=== PATIENT | female | born 1945 | race Caucasian/White ===

== ENCOUNTER 2018-08-01 06:23 | Inpatient (IN) ==
[~2018-08-01 06:23] MED LIST: ASPIRIN ONE
[2018-08-01] MEDS ORDERED: G.I. COCKTAIL PO ONE ×2 (06:34→17:57)
--- NOTE | 2018-08-01 06:37 | PROVIDER DOCUMENTATION ---
HPI-Chest Pain - General Chief Complaint: Chest Pain Stated Complaint: SOB Time Seen by Provider: 08/01/18 06:26 Source: patient Allergies/Adverse Reactions: Patient Allergies Allergy/AdvReac Type Severity Reaction Status Date / Time lisinopril Allergy DRY COUGH Verified 08/01/18 06:26 Home Medications: Home Medication List Medication Instructions Recorded Confirmed Last Taken Type ATORVAstatin [Lipitor] 20 mg PO DAILY 07/04/17 08/01/18 07/04/17 10:00 History Aspirin [Aspir-Low] 81 mg PO DAILY 07/04/17 08/01/18 07/04/17 10:00 History Furosemide 20 mg PO DAILY 07/04/17 08/01/18 07/04/17 10:00 History Insulin Aspart [Novolog Flexpen] 18 units SUBQ DAILY 07/04/17 08/01/18 07/04/17 10:00 History Insulin Detemir [Levemir Flextouch] 55 units SUBQ HS 07/04/17 08/01/18 07/03/17 17:00 History Potassium Chloride 10 meq PO DAILY 07/04/17 08/01/18 07/04/17 10:00 History Acetaminophen [Tylenol] 1,000 mg PO Q6H PRN PRN 08/01/18 08/01/18 Unknown Hi story Prednisone 1 mg PO DAILY 08/01/18 08/01/18 Unknown History - History of Present Illness-CP Nature of Presenting Problem: 72 y/o WF c/o epigastric and substernal chest pain since last night. She states that her pain radiates through her back and at times up her neck. Pt also notes SOB but no nausea. Location: reports: substernal, epigastric Chest Pain Radiation: reports: neck, shoulders, back Quality of Pain: reports: aching, burning Severity in ED: mild Onset/Duration: last night Timing: still present Context/Activities at Onset: reports: light activity Modifying Factors: improves with: palpation Associated Symptoms: reports: shortness of breath Nitro Today/Relief: no nitro taken today Aspirin Treatment Today: 81 mg x 2 Prior Chest Pain/Cardiac Workup: reports: no prior chest pain, no prior cardiac workup Similar Symptoms Previously?: No Recently Seen Here or By Another Healthcare Provider: No Review of Systems - Adult - REVIEW OF SYSTEMS - ADULT Constitutional: reports: no symptoms reported, see HPI Eyes: reports: no symptoms reported, see HPI Ears, Nose, Mouth & Throat: reports: no symptoms reported, see HPI Cardiovascular: reports: see HPI, chest pain Respiratory: reports: see HPI, shortness of breath Gastrointestinal: reports: no symptoms reported, see HPI Genitourinary: reports: no symptoms reported, see HPI Musculoskeletal: reports: no symptoms reported, see HPI Integumentary: reports: no symptoms reported, see HPI Neurological: reports: no symptoms reported, see HPI Psychiatric: reports: no symptoms reported, see HPI Endocrine: reports: no symptoms reported, see HPI Hematologic/Lymphatic: reports: no symptoms reported, see HPI Allergic/Immunologic: reports: no symptoms reported, see HPI All Other Systems: Reviewed and Negative Past History - Adult - PAST MEDICAL HISTORY-ADULT Review of Records: reports: Nursing Assessment Review, Medications Reviewed, Social history reviewed & non-contributory. Major Childhood Illnesses: reports: denies history Cardiovascular: reports: HTN, hyperlipidemia Respiratory: reports: denies history Gastrointestinal: reports: GERD Obstetrical/Gynecological: reports: denies history Genitourinary: reports: denies history Musculoskeletal: reports: denies history Neurological: reports: denies history Endocrine/Immune: reports: Diabetes Other Conditions: reports: denies history - PRIOR SURGERIES/PROCEDURES Surgical/Procedure History: reports: appendectomy, hysterectomy, , hernia repair - IMMUNIZATION STATUS Childhood Immunizations: See Nurse Assessment Flu Vaccine: See Nurse Assessment - FAMILY HISTORY Family History: reviewed, not pertinent Physical Exam-General - PHYSICAL EXAM-ADULT Initial Vital Signs Reviewed: Yes - CONSTITUTIONAL General Appearance: appears well, alert, no apparent distress - EYES Eyes: PERRL/EOMI - HEAD, EARS, NOSE, MOUTH & THROAT HENMT: normocephalic/atraumatic, moist mucous membranes - NECK Neck: non-tender, full range of motion, supple, normal inspection - RESPIRATORY Respiratory: lungs clear, normal breath sounds, no pleuratic chest pain, no respiratory distress, no accessory muscle use, other (tenderness with chest wall palpation (sternal)) - CARDIOVASCULAR Cardiovascular: normal peripheral pulses, regular rate, rhythm, no edema, no gallop, no JVD, no murmur - GASTROINTESTINAL (ABDOMEN) Abdominal Exam: normal bowel sounds, non tender, soft, no organomegaly, no pulsatile mass - LYMPHATIC Lymphatic: no adenopathy - MUSCULOSKELETAL Back Exam: normal inspection, no CVA tenderness, no vertebral tenderness Extremity: normal range of motion, non-tender, normal gait, normal inspection, no pedal edema, no calf tenderness, normal capillary refill - SKIN Integumentary: normal color, normal turgor - NEUROLOGIC Neurologic: gluer and wedger II-XII nml as tested, grossly normal, no motor/sensory deficits - PSYCHIATRIC Psych/Mental Status: normal mood/affect, normal thought content, normal thought process, oriented x 3 - HEART Score HEART Score: History: Slightly Suspicious HEART Score: ECG: Non-Specific Repolarization Disturbance/LBBB/PM HEART Score: Age: > or = 65 Years HEART Score: Risk Factors for Atherosclerotic Disease: 1 or 2 Risk Factors HEART Score: Troponin: < or = Normal Limit Total HEART Score:: 4 Progress - PLAN OF CARE/RESULTS Result Diagrams: 08/02/18 06:12 08/02/18 06:12 - EKG 1 Time of EKG reading by physician:: 06:25 EKG Read and Signed by:: Marcelo Cobos EKG Interpretation (*Must complete 3 of following elements*): Abnormal Rate: 84 [place]: normal QRS: normal [place] Interval: normal ST Wave: depressed Prior EKG Comparison: no prior EKG - CHANGE OF SHIFT REPORT (ED Provider) 1 Report Given and Care Transferred to:: Dr Jc Time of Transfer: 07:00 Items Pending: Labs, XRAY Results Departure - Departure Date of Disposition Decision: 08/01/18 Time of Disposition Decision: 09:34 DIAGNOSIS: Chest pain Disposition: ADMITTED INPATIENT 09 Certified Medical Emergency: Emergent Condition: Stable - Critical Care Note This patient required my direct & personal management of CC.: No Attestation - Physician/ GISSELLE Attestation Patient care was provided by Advanced Practice Provider:: No The physician spent face to face time with patient:: Yes Advanced Practice Provider documentation review:: Supervising physician onsite and consulted in the evaluation and care of this patient. The physician did have a face to face encounter with the patient.
[2018-08-01 07:02] LABS: BASO# 0.04 X1000 (0.0-0.2); BASO% 0.3 % (0.0-0.8); EOS# 0.25 X1000 (0.0-0.7); EOS% 1.6 % (0.0-10.0); HEMATOCRIT 43.9 % (37.0-47.0); HEMOGLOBIN 13.9 g/dL (12.0-16.0); IMM GRAN# 0.04 X1000 (0.0-0.04); IMM GRAN% 0.3 % (0.0-0.5); LYMPH# 2.04 X1000 (1.2-3.4); LYMPH% 13.1 % (20.5-51.1); MCH 27.7 PG (27-31); MCHC 31.7 g/dL (33-37); MCV 87.5 FL (81-99); MONO# 1.77 X1000 (0.11-0.59); MONO% 11.4 % (1.7-9.3); MPV 11.2 FL (7.4-10.4); NEUT# 11.45 X1000 (1.4-6.5); NEUT% 73.3 % (42.2-75.2); PLT 244 X1000 (130-400); RBC 5.02 XMIL (4.2-5.4); RDW 14.5 % (11.5-14.5); WBC 15.59 X1000 (4.8-10.8)
[2018-08-01 07:20] LABS: INR 0.93; PROTIME 12.9 Seconds (11.0-16.0)
[2018-08-01 07:21] LABS: PTT 27.2 Seconds (22.3-41.8)
--- NOTE | 2018-08-01 07:28 | Diag Imaging Result Doc PS360 ---
EXAM: CHEST-2 VIEWS HISTORY: cp TECHNIQUE: Chest two views COMPARISON: 07/04/2017 FINDINGS: The lungs are well expanded. The heart is not enlarged. The vessels are not distended. There are no infiltrates. No pleural effusions. IMPRESSION: No acute abnormality. Electronically signed by Matthew Mcguire 08/01/2018 7:26 AM
[2018-08-01 07:30] LABS: AGAP 13; ALBUMIN 4.2 g/dL (3.5-5.0); ALKALINE PHOSPHATASE 104 U/L (32-104); BUN 16 mg/dL (8-22); CALCIUM 9.2 mg/dL (8.8-10.2); CHLORIDE 102 mmol/L (98-107); CK PROFILE 55 U/L (24-173); COSMO 288; CREATININE 0.8 mg/dL (0.5-0.9); ESTIMATED GFR > 60; GLUCOSE 107 mg/dL (70-104); GOT 12 U/L (10-30); GPT 9 U/L (10-36); POTASSIUM 3.9 mmol/L (3.5-5.1); SODIUM 144 mmol/L (136-145); TCO2 29 mmol/L (25-35); TOTAL PROTEIN 7.1 g/dL (6.3-8.3)
[2018-08-01] MEDS ORDERED: ZOFRAN IV ONE (07:48)
[2018-08-01] MEDS ORDERED: MORPHINE IV ONE (07:48)
[2018-08-01 10:12] LABS: AMYLASE 61 U/L (20-200); LIPASE 25 U/L (13-60)
[2018-08-01] MEDS ORDERED: DILAUDID IV ONE (10:36)
[2018-08-01] MEDS: HUMALOG (PARKWAY) SUBQ SCH ×3 (12:10→21:49)
[2018-08-01] MEDS: PROTONIX IV SCH ×2 (12:20→21:49)
[2018-08-01] MEDS: SODIUM CHLORIDE 0.9% INJ SCH (12:20)
[2018-08-01] MEDS: CARAFATE PO SCH ×3 (14:49→21:30)
--- NOTE | 2018-08-01 15:10 | EKG Report ---
Test Performed on : 08/01/2018 06:25:51 AM Test Reason : cp Blood Pressure : / mmHG Vent. Rate : 084 BPM Atrial Rate : 084 BPM P-R Int : 114 ms QRS Dur : 076 ms QT Int : 354 ms P-R-T Axes : 003 -05 025 degrees QTc Int : 418 ms Normal sinus rhythm. Minimal voltage criteria for LVH, may be normal variant Junctional ST depression, probably normal Borderline ECG When compared with ECG of 04-JUL-2017 14:26, No significant change was found Unconfirmed Result
[2018-08-01 17:04] LABS: BILIRUBIN URINE NEGATIVE (NEGATIVE); BLOOD URINE 2+ (NEGATIVE); CLARITY VERY CLOUDY (CLEAR); COLOR YELLOW; KETONE URINE TRACE mg/dL (NEGATIVE); LEUKOCYTES URINE TRACE (NEGATIVE); NITRITE URINE NEGATIVE (NEGATIVE); PROTEIN URINE TRACE mg/dL (NEGATIVE); UROBILINOGEN URINE NORMAL
[2018-08-01 17:05] LABS: URINE SOURCE CLEAN CATCH
[2018-08-01 17:07] LABS: URINE BACTERIA 3+ /HFP; URINE CAST NONE SEEN /LPF; URINE CRYSTAL NONE SEEN /HPF; URINE EPITHELIAL CELLS <10 /HPF (<10); URINE RBC <10 /HPF (<10); URINE YEAST NONE SEEN /HPF
--- NOTE | 2018-08-01 18:19 | EKG Report ---
Test Performed on : 08/01/2018 6:07:29 PM Test Reason : CHEST PAIN Blood Pressure : / mmHG Vent. Rate : 088 BPM Atrial Rate : 088 BPM P-R Int : 148 ms QRS Dur : 086 ms QT Int : 340 ms P-R-T Axes : 046 -02 027 degrees QTc Int : 411 ms Normal sinus rhythm. Normal ECG When compared with ECG of 01-AUG-2018 06:25, (Unconfirmed) No significant change was found Unconfirmed Result
--- NOTE | 2018-08-01 18:26 | HISTORY AND PHYSICAL ---
CHIEF COMPLAINT: Epigastric pain, chest pain. HISTORY OF PRESENT ILLNESS: This is a 72-year-old female with a history of diabetes mellitus, gastroesophageal reflux disease, hypertension, and arthritis. She presents to the emergency room complaining of epigastric pain that radiates straight through to her back up into her bilateral shoulders and neck, accompanied by shortness of breath. She states this was of sudden onset last night. It waxed and waned through the night. Just prior to coming to the emergency room, it became persistent, intensity increased, and therefore she presented for evaluation. She denies any dizziness, syncope, any prior episodes. When asked to point to the area of pain, she states this starts as epigastric and goes around each side along her ribcage and straight through to her back. Chest wall is tender to palpation. PAST MEDICAL HISTORY: 1. Gastroesophageal reflux disease. 2. Hypertension. 3. Diabetes mellitus. 4. Hyperlipidemia. 5. Rheumatoid arthritis. 6. Osteoarthritis. 7. Gout. PAST SURGICAL HISTORY: 1. Appendectomy. 2. . 3. Hysterectomy. 4. Hernia repair. 5. Tubal ligation. SOCIAL HISTORY: She denies alcohol, tobacco, or illicit drug use. ALLERGIES: Lisinopril, which causes a cough. HOME MEDICATIONS: A list will be obtained by the nursing staff and once reviewed, will be restarted as appropriate. REVIEW OF SYSTEMS: Discussed with the patient with pertinent positives as stated in the HPI. She denied any syncope, dizziness, any palpitations, a productive cough, any fever or chills, nausea, vomiting, diarrhea, constipation, black or bloody vomitus or stools, any hematuria, dysuria, frequency, or urgency. PHYSICAL EXAMINATION: GENERAL: This is a 72-year-old female who is lying on the stretcher in the emergency room in no distress. VITAL SIGNS: Blood pressure is 122/77 with a heart rate of 80, respirations are 18, temperature is 98.3, with O2 saturations of 96% to 97% on 2 L nasal cannula. EYES: Pupils are equal, round, and react to light. EOMs are intact. Sclerae are anicteric. HEAD: Normocephalic, atraumatic. ENT: Mucous membranes are moist. NECK: Supple. Trachea midline. She has no JVD. CARDIOVASCULAR: Regular rate and rhythm. S1 and S2 are appreciated. Calves are nontender to palpation. She has no lower extremity edema with peripheral pulses palpable x4 extremities. PULMONARY: Breath sounds are clear with no increased work of breathing noted. Chest rises and falls symmetrically with respiration. Chest wall is tender to palpation, midsternal. GASTROINTESTINAL: Abdomen is soft and not distended. She is tender in the epigastric region as well as right and left upper quadrants, just at the border of the ribcage. Bowel sounds are present in all 4 quadrants. NEUROLOGIC: She is alert and oriented x3. SKIN: Warm and dry. LABS: WBC is 15 with hemoglobin 13.9, hematocrit 43.9, and platelets of 244,000. Sodium 144, potassium 3.9, BUN 16, creatinine 0.8 with a glucose of 107. Troponins are negative on multiple occasions. Urinalysis reveals 10 to 20 microscopic white blood cells with 3+ bacteria, less than 10 epithelial cells. Chest x-ray reveals no acute abnormality. Lungs are well expanded. Heart is not enlarged. Vessels are not distended. There are no infiltrates and no pleural effusion. ASSESSMENT AND PLAN: 1. Epigastric pain. 2. Chest pain. 3. Leukocytosis. 4. Diabetes mellitus type 2. 5. Gastroesophageal reflux disease. 6. Hypertension. 7. Deep venous thrombosis prophylaxis and gastrointestinal prophylaxis. PLAN: 1. The patient will be admitted to the medical-surgical floor at [place]. She will be placed on telemetry for close monitoring. 2. She will be placed on a clear liquid diet. 3. We will continue to trend troponins and cardiac profile. 4. Urine culture will be ordered. 5. We will check a CBC and CMP in the morning. 6. We will identify her home medications and continue as appropriate. 7. We will obtain a CT scan of her abdomen and pelvis. 8. We will hold her oral antidiabetics. She will be placed on patterned blood glucose with sliding scale insulin. 9. We will start Carafate 1 g before meals and at bedtime. 10. We will get a CT of the thorax. 11. IV Protonix. 12. Further treatments pending hospital course. Dictated by KAILASH Jimenez for Josh Cabello MD This chart was documented by, KAILASH Jimenez and accurately reflects the services performed, treatment plan and medical decisions as attested by the providers signature Josh Cabello MD. cc: KAILASH Jimenez MD
--- NOTE | 2018-08-01 20:18 | Diag Imaging Result Doc PS360 ---
EXAM: CT THORAX/ABD/PELVIS W/CON HISTORY: epigastric pain TECHNIQUE: 1. CT chest with contrast 2. CT abdomen and pelvis with contrast COMPARISON: Chest compared to 07/04/2017. Abdomen and pelvis compared to 02/02/2018 FINDINGS: Chest: No cardiomegaly. No thoracic aortic aneurysm or dissection. No enlarged lymph nodes. No consolidation. There is basilar atelectasis. Mild posterior and inferior bronchiectasis. No consolidation. Abdomen and pelvis: There is fatty infiltration of the liver. No calcified gallstones or adjacent inflammation. Normal spleen, pancreas, and adrenal glands. There is a 5 mm right lower pole renal stone. The scarring to each kidney. No hydronephrosis. Normal aorta. There is an anterior abdominal wall hernia containing a portion of the transverse colon. This hernia is just above and to the right of the umbilicus. No bowel obstruction. No wall thickening of the colon extending into the hernia. This is similar to the prior exam. There is an additional fat filled hernia just beneath the umbilicus. The uterus has been removed. Urinary bladder is distended and is normal. No pelvic mass. Oral contrast has passed through the small bowel and entered the proximal colon. IMPRESSION: Chest: Basilar atelectasis with a small amount of bronchiectasis Abdomen and pelvis: 1. Fatty infiltration of the liver 2. Nonobstructing right renal stone 3. Anterior abdominal wall hernias containing a portion of the transverse colon. Findings are similar to the prior study. 4. Hysterectomy 5. Constipation This exam was performed using automated exposure control, adjustment of mA or kV according to patient size, and/or use of iterative reconstruction technique. Electronically signed by Matthew Mcguire 08/01/2018 8:16 PM
[2018-08-01] MEDS: NORCO-5 PO PRN (21:30)
[2018-08-01] MEDS: LIPITOR PO SCH (21:30)
--- NOTE | 2018-08-01 21:49 | HISTORY AND PHYSICAL ---
ADDENDUM: Patient presented to the hospital with chest pain. No real radiation although does note she is having pain in both shoulders, pain typically in the center of her chest. Blood pressure is elevated. Does have a history of diabetes and rheumatoid arthritis . Will admit her to the hospital, rule out AL, restart her home medications and follow. cc: Josh Cabello MD
[2018-08-02] MEDS: HUMALOG (PARKWAY) SUBQ SCH ×8 (06:34→23:00)
[2018-08-02] MEDS: CARAFATE PO SCH ×4 (06:34→20:37)
[2018-08-02 06:54] LABS: HEMATOCRIT 40.6 % (37.0-47.0); HEMOGLOBIN 12.5 g/dL (12.0-16.0); MCH 27.4 PG (27-31); MCHC 30.8 g/dL (33-37); MPV 11.1 FL (7.4-10.4); RBC 4.56 XMIL (4.2-5.4); RDW 14.7 % (11.5-14.5); WBC 12.97 X1000 (4.8-10.8)
[2018-08-02 07:14] LABS: AGAP 11; ALBUMIN 2.9 g/dL (3.5-5.0); ALKALINE PHOSPHATASE 85 U/L (32-104); BUN 12 mg/dL (8-22); CALCIUM 8.7 mg/dL (8.8-10.2); CHLORIDE 102 mmol/L (98-107); COSMO 283; CREATININE 0.7 mg/dL (0.5-0.9); ESTIMATED GFR > 60; GLUCOSE 199 mg/dL (70-104); GOT 9 U/L (10-30); GPT < 5 U/L (10-36); POTASSIUM 4.2 mmol/L (3.5-5.1); SODIUM 139 mmol/L (136-145); TCO2 26 mmol/L (25-35); TOTAL PROTEIN 6.6 g/dL (6.3-8.3)
[2018-08-02] MEDS: PROTONIX IV SCH ×2 (09:12→20:37)
[2018-08-02] MEDS: ASPIRIN EC PO SCH (09:12)
[2018-08-02] MEDS: SODIUM CHLORIDE 0.9% INJ SCH (09:12)
[2018-08-02] MEDS: LASIX PO SCH (09:13)
[2018-08-02] MEDS: PREDNISONE PO SCH (09:13)
--- NOTE | 2018-08-02 11:26 | EKG Report ---
Test Performed on : 08/02/2018 10:47:08 AM Test Reason : irr HR Blood Pressure : / mmHG Vent. Rate : 084 BPM Atrial Rate : 084 BPM P-R Int : 150 ms QRS Dur : 088 ms QT Int : 356 ms P-R-T Axes : 033 -04 039 degrees QTc Int : 420 ms Normal sinus rhythm. Normal ECG When compared with ECG of 01-AUG-2018 18:07, (Unconfirmed) No significant change was found Unconfirmed Result
--- NOTE | 2018-08-02 12:19 | EKG Report ---
Test Performed on : 08/02/2018 12:07:28 PM Test Reason : increased heart rate Blood Pressure : / mmHG Vent. Rate : 129 BPM Atrial Rate : 127 BPM P-R Int : 000 ms QRS Dur : 090 ms QT Int : 310 ms P-R-T Axes : 000 -12 070 degrees QTc Int : 454 ms Atrial fibrillation. with rapid ventricular response. Minimal voltage criteria for LVH, may be normal variant Abnormal ECG When compared with ECG of 02-AUG-2018 10:47, (Unconfirmed) Atrial fibrillation. has replaced Sinus rhythm. Vent. rate has increased BY 45 BPM Unconfirmed Result
[2018-08-02] MEDS ORDERED: CARDIZEM IV ONE (16:33)
[2018-08-02] MEDS ORDERED: CARDIZEM 125/NS 125 MG/125 ML IVPB IV SCH (17:00)
--- NOTE | 2018-08-02 17:47 | EKG Report ---
Test Performed on : 08/02/2018 4:58:53 PM Test Reason : RVR Blood Pressure : / mmHG Vent. Rate : 133 BPM Atrial Rate : 100 BPM P-R Int : 000 ms QRS Dur : 084 ms QT Int : 302 ms P-R-T Axes : 000 007 060 degrees QTc Int : 449 ms Undetermined rhythm Otherwise normal ECG When compared with ECG of 02-AUG-2018 12:07, (Unconfirmed) Current undetermined rhythm precludes rhythm comparison, needs review Unconfirmed Result
--- NOTE | 2018-08-02 17:47 | EKG Report ---
Test Performed on : 08/02/2018 5:10:31 PM Test Reason : RVR Blood Pressure : / mmHG Vent. Rate : 093 BPM Atrial Rate : 093 BPM P-R Int : 140 ms QRS Dur : 084 ms QT Int : 338 ms P-R-T Axes : 047 -04 050 degrees QTc Int : 420 ms Normal sinus rhythm. Normal ECG When compared with ECG of 02-AUG-2018 16:58, (Unconfirmed) Previous ECG has undetermined rhythm, needs review Unconfirmed Result
[2018-08-02] MEDS: LOVENOX SUBQ SCH (18:42)
[2018-08-02] MEDS: LIPITOR PO SCH (20:37)
--- NOTE | 2018-08-02 23:33 | PROGRESS NOTE ---
DATE: 08/02/2018 SUBJECTIVE: This morning patient actually notes that she feels fine. States she is feeling better, and is asking to go home. Prior to discharge, the patient was noted on telemetry to go into a rapid rate and felt to be AFib and, therefore, was transferred to the ICU. OBJECTIVE: Vital Signs: Temperature 98, pulse 87, respiratory 18, BP 144/59. General: Patient is awake, alert. She is very pleasant to talk with. HEENT: Normocephalic. Neck: Supple. CV: Currently rate controlled. Abdomen: Soft, nondistended. Extremities: Moves all extremities. Neurologic: No changes. ASSESSMENT: 1. Atrial fibrillation, currently rate controlled. 2. Epigastric pain. 3. Chest pain. 4. Diabetes. 5. Chronic reflux. 6. Hypertension. PLAN: Will transfer patient to the ICU, place her on Cardizem. We will follow her rate. Further orders as needed. We will rule out OH. Place her on Lovenox. cc: Josh Cabello MD MTDD
[2018-08-03] MEDS: LOVENOX SUBQ SCH (05:45)
[2018-08-03] MEDS: CARAFATE PO SCH ×4 (06:39→20:09)
[2018-08-03] MEDS: HUMALOG (PARKWAY) SUBQ SCH ×5 (06:39→20:09)
--- NOTE | 2018-08-03 09:13 | EKG Report ---
Test Performed on : 08/03/2018 07:56:48 AM Test Reason : abnl ekg Blood Pressure : / mmHG Vent. Rate : 084 BPM Atrial Rate : 084 BPM P-R Int : 150 ms QRS Dur : 090 ms QT Int : 372 ms P-R-T Axes : 033 009 039 degrees QTc Int : 439 ms Normal sinus rhythm. Nonspecific ST abnormality Abnormal ECG When compared with ECG of 02-AUG-2018 17:10, (Unconfirmed) No significant change was found Unconfirmed Result
[2018-08-03] MEDS: LASIX PO SCH (09:30)
[2018-08-03] MEDS: CARDIZEM PO SCH ×2 (09:30→20:09)
[2018-08-03] MEDS: ASPIRIN EC PO SCH (09:30)
[2018-08-03] MEDS: PROTONIX IV SCH ×2 (09:31→20:32)
[2018-08-03] MEDS: SODIUM CHLORIDE 0.9% INJ SCH ×2 (09:31→20:09)
[2018-08-03] MEDS: PREDNISONE PO SCH (11:39)
[2018-08-03] MEDS: LIPITOR PO SCH (20:09)
--- NOTE | 2018-08-03 23:40 | PROGRESS NOTE ---
DATE: 08/02/2018 SUBJECTIVE: Patient without any new complaints this am. Still very fatigued and tired. PHYSICAL EXAMINATION: Vital Signs: Temperature 99.8 degrees, pulse 72, respiratory 18, BP 115/57. General: Patient is in no current respiratory distress. She is lying in bed. She is calm, but confused. Does not answer questions. HEENT: Normocephalic. Neck: Supple. Cardiovascular: Regular rate. No appreciable murmurs. Chest: Clear. No crackles. Abdomen: Soft, nondistended. Extremities: Moves all extremities. ASSESSMENT: 1. Gram-negative jose urinary tract infection. We will continue antibiotics. 2. Abnormal EKG. We will ask Cardiology for opinion. 3. Leukocytosis. 4. Diabetes. 5. Reflux. 6. Hypertension. PLAN: Continue patient in the ICU for now. Continue antibiotics, supportive care, oxygen and we will follow. cc: Josh Cabello MD MTDD
[2018-08-04] MEDS ORDERED: CARDIZEM IV ONE (00:15)
[2018-08-04] MEDS ORDERED: CARDIZEM 100 MG/NS 100 MG/100 ML IVPB IV SCH (00:30)
[2018-08-04] MEDS: NORCO-5 PO PRN ×2 (00:31→20:06)
[2018-08-04] MEDS: HUMALOG (PARKWAY) SUBQ SCH ×5 (06:40→20:19)
--- NOTE | 2018-08-04 08:47 | ECHO REPORT ---
ORDER DATE: 08/03/2018 ECHOCARDIOGRAPHIC MEASUREMENTS: 1. Septal thickness 0.9. 2. Left ventricular internal diameter in diastole 4.6. 3. Left ventricular internal diameter in systole 2.9. 4. Left atrium 3.6, 5. Aortic root 3.0. SUMMARY: 1. Technically difficult study due to limited acoustic window quality. Intravenous echo contrast agent was utilized to enhance endocardial definition. 2. Aortic valve is trileaflet and opens normally on 2-dimensional images. Peak gradient across the aortic valve is less than 10 mmHg. There is mild mitral annular calcification. Trace mitral regurgitation is demonstrated. Tricuspid and pulmonic valves are without evidence of structural abnormality with trace tricuspid regurgitation and mild pulmonic insufficiency. The estimated systolic PA pressure by Doppler is 25 to 30 mmHg. Aortic root is normal in size. 3. Normal left ventricular dimensions demonstrated. Estimated left ventricular ejection fraction appears to be at least 60%. No regional wall motion abnormalities are evident. Left atrium, right atrium, right ventricle are normal in size with grossly preserved right ventricular systolic function. 4. No pericardial effusion. 5. Appearance of inferior vena cava suggests normal central venous pressure. cc: MD Brittany Virgen CRNP
[2018-08-04] MEDS: ASPIRIN EC PO SCH (09:43)
[2018-08-04] MEDS: CARAFATE PO SCH ×4 (09:43→20:05)
[2018-08-04] MEDS: CARDIZEM PO SCH ×2 (09:43→20:05)
[2018-08-04] MEDS: PROTONIX IV SCH ×2 (09:44→22:03)
[2018-08-04] MEDS: LASIX PO SCH (09:44)
[2018-08-04] MEDS: LOVENOX SUBQ SCH (09:44)
[2018-08-04] MEDS: PREDNISONE PO SCH (11:18)
[2018-08-04] MEDS: LIPITOR PO SCH (20:05)
[2018-08-04] MEDS: LEVEMIR INSULIN *HA SUBQ SCH (20:06)
--- NOTE | 2018-08-05 01:51 | PROGRESS NOTE ---
DATE: 08/04/2018 SUBJECTIVE: Patient last night had an eventful night. She went back into atrial fibrillation with rapid rate. Was given 1 dose of Cardizem 5 mg IV and converted back to sinus and has been there since. PHYSICAL EXAMINATION: Vital Signs: Temperature 98 degrees, pulse 76 to 124, respiratory 18, BP 106/93. General: Patient is very pleasant to talk with. She is in no current respiratory distress. States she gets tired and weak at times. Notes that she does not feel her heart racing all the times that she is tired and weak. Chest: Clear. Neck: Supple. Extremities: Moves all extremities. No edema. ASSESSMENT: 1. Atrial fibrillation with rapid ventricular response, currently converted back to sinus. 2. Syncopal episodes at home which very well were likely due to intermittent atrial fibrillation. 3. Leukocytosis. 4. Escherichia coli extended spectrum beta-lactamase negative urinary tract infection, currently on antibiotics. 5. Type 2 diabetes. 6. Hypertension. PLAN: We will continue patient in the hospital. We will stay in the ICU today as we have still had episodes of RVR overnight. If this remains stable, then we can transition to the floor tomorrow. We will ask Cardiology to see and evaluate as I certainly expect that some of her weak, and dizzy and lightheaded spells at home may have been intermittent atrial fibrillation. cc: Josh Cabello MD
[2018-08-05] MEDS ORDERED: CARDIZEM 125/NS 125 MG/125 ML IVPB IV PRN (06:00)
[2018-08-05 07:19] LABS: BASO# 0.06 X1000 (0.0-0.2); BASO% 0.4 % (0.0-0.8); EOS# 0.66 X1000 (0.0-0.7); EOS% 4.7 % (0.0-10.0); HEMATOCRIT 40.3 % (37.0-47.0); HEMOGLOBIN 12.5 g/dL (12.0-16.0); IMM GRAN# 0.07 X1000 (0.0-0.04); IMM GRAN% 0.5 % (0.0-0.5); LYMPH# 2.45 X1000 (1.2-3.4); LYMPH% 17.5 % (20.5-51.1); MCH 27.1 PG (27-31); MCV 87.2 FL (81-99); MONO# 1.58 X1000 (0.11-0.59); MONO% 11.3 % (1.7-9.3); MPV 11.6 FL (7.4-10.4); NEUT# 9.18 X1000 (1.4-6.5); NEUT% 65.6 % (42.2-75.2); PLT 269 X1000 (130-400); RBC 4.62 XMIL (4.2-5.4); RDW 13.8 % (11.5-14.5)
[2018-08-05] MEDS: HUMALOG (PARKWAY) SUBQ SCH ×5 (07:22→20:30)
[2018-08-05] MEDS: CARAFATE PO SCH ×4 (07:23→20:25)
[2018-08-05 07:31] LABS: AGAP 13; BUN 16 mg/dL (8-22); CALCIUM 8.7 mg/dL (8.8-10.2); CHLORIDE 102 mmol/L (98-107); COSMO 290; CREATININE 0.9 mg/dL (0.5-0.9); ESTIMATED GFR > 60; GLUCOSE 164 mg/dL (70-104); POTASSIUM 3.6 mmol/L (3.5-5.1); SODIUM 143 mmol/L (136-145); TCO2 28 mmol/L (25-35)
[2018-08-05] MEDS: ASPIRIN EC PO SCH (09:09)
[2018-08-05] MEDS: SODIUM CHLORIDE 0.9% INJ SCH (09:09)
[2018-08-05] MEDS: LASIX PO SCH (09:09)
[2018-08-05] MEDS: LOVENOX SUBQ SCH (09:09)
[2018-08-05] MEDS: PROTONIX IV SCH ×2 (09:09→21:14)
[2018-08-05] MEDS: CARDIZEM PO SCH ×2 (09:09→20:25)
[2018-08-05] MEDS: PREDNISONE PO SCH (09:09)
[2018-08-05] MEDS: ROCEPHIN 1 GM in NS 50 ML IV SCH (09:20)
[2018-08-05] MEDS ORDERED: INSULIN PEN NEEDLES ONE (20:25)
[2018-08-05] MEDS: LIPITOR PO SCH (20:25)
[2018-08-05] MEDS: LEVEMIR INSULIN *HA SUBQ SCH (20:33)
--- NOTE | 2018-08-06 00:39 | PROGRESS NOTE ---
DATE: 08/05/2018 SUBJECTIVE: Patient notes that she feels a lot better but still very weak and fatigued. Denies any chest pain. She does note that she has palpitations occasionally when her heart rate goes up, but not all the time. PHYSICAL EXAMINATION: HEENT: Normocephalic. Neck: Supple. Cardiovascular: Regular rate. Chest: Clear, nonlabored. Abdomen: Soft, obese, nondistended. Extremities: Moves all extremities. No edema. ASSESSMENT: 1. Atrial fibrillation with rapid ventricular response, currently back to rate controlled. 2. Extended spectrum beta-lactamase negative Escherichia coli urinary tract infection. 3. Leukocytosis. 4. Diabetes. 5. Generalized weakness. PLAN: We will continue patient in the hospital. Transfer to the floor. Continue antibiotics. Get Physical Therapy involved. Further orders as needed. cc: Josh Cabello MD
[2018-08-06] MEDS: NORCO-5 PO PRN (05:31)
[2018-08-06 06:18] LABS: BASO# 0.04 X1000 (0.0-0.2); BASO% 0.3 % (0.0-0.8); EOS# 0.67 X1000 (0.0-0.7); EOS% 4.6 % (0.0-10.0); HEMOGLOBIN 12.5 g/dL (12.0-16.0); IMM GRAN# 0.05 X1000 (0.0-0.04); IMM GRAN% 0.3 % (0.0-0.5); LYMPH# 2.62 X1000 (1.2-3.4); LYMPH% 18.2 % (20.5-51.1); MCH 26.9 PG (27-31); MCHC 31.3 g/dL (33-37); MCV 86.2 FL (81-99); MONO# 1.54 X1000 (0.11-0.59); MONO% 10.7 % (1.7-9.3); MPV 11.5 FL (7.4-10.4); NEUT# 9.51 X1000 (1.4-6.5); NEUT% 65.9 % (42.2-75.2); PLT 264 X1000 (130-400); RBC 4.64 XMIL (4.2-5.4); RDW 13.7 % (11.5-14.5); WBC 14.43 X1000 (4.8-10.8)
[2018-08-06] MEDS: HUMALOG (PARKWAY) SUBQ SCH ×5 (06:22→20:24)
[2018-08-06] MEDS: CARAFATE PO SCH ×4 (10:15→20:23)
[2018-08-06] MEDS: ROCEPHIN 1 GM in NS 50 ML IV SCH (10:15)
[2018-08-06] MEDS: PROTONIX PO SCH ×2 (10:15→20:23)
[2018-08-06] MEDS: ASPIRIN EC PO SCH (10:15)
[2018-08-06] MEDS: LOVENOX SUBQ SCH (10:15)
[2018-08-06] MEDS: LASIX PO SCH (10:15)
[2018-08-06] MEDS: PREDNISONE PO SCH (10:18)
[2018-08-06] MEDS: CARDIZEM PO SCH ×2 (10:18→20:23)
--- NOTE | 2018-08-06 18:09 | PROGRESS NOTE ---
DATE: 08/06/2018 SUBJECTIVE: The patient notes that she is feeling a lot better. She is still tired and fatigued has not really been out of bed since moving out to the floor from the ICU. Denies any chest pain, palpitations. States that she is eager to go home. PHYSICAL EXAM: Temperature 98.2, pulse 67, respiratory 18, BP 115/48, saturation 93% on room air.General: Patient is awake, alert, very pleasant talk with, in no current respiratory distress. HEENT: Normocephalic. Neck: Supple. CV: Regular rate. Chest: Clear, no crackles, no wheezing. Abdomen: Soft, nondistended. Extremities: Moves all extremities. ASSESSMENT: 1. Atrial fibrillation currently converted back to sinus. 2. Extended spectrum beta-lactamase negative Escherichia coli urinary tract infection on antibiotics . 3. Leukocytosis, white count remains at 14. 4. Diabetes. 5. Hypertension. 6. Reflux. PLAN: Overall patient has improved, we will continue antibiotics today, continue ambulation and out of bed and hopefully home soon. cc: Josh Cabello MD
[2018-08-06] MEDS: LIPITOR PO SCH (20:23)
[2018-08-06] MEDS: LEVEMIR INSULIN *HA SUBQ SCH (20:23)
[2018-08-07 04:11] VITALS: BP 124/51
[2018-08-07] MEDS: HUMALOG (PARKWAY) SUBQ SCH ×2 (06:29→11:24)
[2018-08-07] MEDS: PROTONIX PO SCH (07:29)
[2018-08-07] MEDS: LOVENOX SUBQ SCH (08:16)
[2018-08-07] MEDS: PREDNISONE PO SCH (08:16)
[2018-08-07] MEDS: ASPIRIN EC PO SCH (08:17)
[2018-08-07] MEDS: ROCEPHIN 1 GM in NS 50 ML IV SCH (08:17)
[2018-08-07] MEDS: CARAFATE PO SCH ×2 (08:17→11:23)
[2018-08-07] MEDS: CARDIZEM PO SCH (08:17)
[2018-08-07] MEDS: LASIX PO SCH (08:17)
--- NOTE | 2018-08-07 14:36 | DISCHARGE SUMMARY ---
ADMISSION DATE: 08/01/2018 DISCHARGE DATE: DISCHARGE ADDENDUM: Patient is breathing better. She walked up and down the halls with her walker without difficulty. She is afebrile. Saturations are stable. Her exam is really unremarkable. Lungs are clear. Atrial fibrillation is stable in sinus now. Based on her risk factors, she is female, she has hypertension, she is diabetic and she is over 65 so her JORGE'S score is 4, I recommend anticoagulation which I will start. We will hold her aspirin for the time being. I will discharge her on Cardizem and we will give her Keflex for another 5 days. She has had Rocephin since admission, so another 5 days will make it 7 days. This is a [id number] encounter note with Saige Wang. cc: Manuel Beal MD
--- NOTE | 2018-08-07 16:23 | DISCHARGE SUMMARY ---
ADMISSION DATE: 08/01/2018 DISCHARGE DATE: 08/07/2018 PRIMARY CARE PHYSICIAN: Listed as none. ADMISSION DIAGNOSIS: 1. Epigastric pain. 2. Chest pain. 3. Leukocytosis. 4. Diabetes type 2. 5. Gastroesophageal reflux disease. 6. Hypertension. DISCHARGE DIAGNOSIS: 1. Atrial fibrillation that converted back to normal sinus rhythm. 2. An extended spectrum beta-lactamase negative Escherichia coli urinary tract infection. 3. Leukocytosis. 4. Diabetes. 5. Hypertension. 6. Reflux. SUMMARY OF FINDINGS: This is a 72-year-old female who presented to the emergency room with complaints of epigastric pain that radiated straight through to her back and up to her bilateral shoulders and neck accompanied by shortness of breath. Stated this was a sudden onset the night prior to arrival and waxed and waned through the night. Just prior to coming into the emergency room it became persistent intensity increased and therefore she presented for evaluation. She denied any dizziness, syncope or any prior episodes. She was admitted. We did a CT of the chest, abdomen and pelvis. The chest showed basilar atelectasis with a small amount of bronchiectasis. Abdomen and pelvis were fairly unremarkable. She had an increase in her heart rate the day after arriving and was found to have become into some atrial fibrillation that converted back to normal sinus rhythm. We did do an echocardiogram on 08/03/2018 that showed an ejection fraction of 60% with no abnormalities noted. She has been treated appropriately for her UTI. She has been afebrile for greater than 24 hours and it is now felt that she can safely be discharged home. DISCHARGE MEDICATIONS: Will include atorvastatin 20 mg p.o. daily, Lasix 20 mg p.o. daily, NovoLog FlexPen 18 units subcu daily, Levemir FlexTouch pen 55 units subcu at bedtime, prednisone 1 mg p.o. daily, Tylenol 1000 mg p.o. q.6 hours p.r.n., prescription for Eliquis 5 mg p.o. b.i.d. #60 with 1 refill, a prescription for Keflex 500 mg p.o. t.i.d. #15 with no refill, Cardizem CD 120 p.o. daily #30 with 1 refill, potassium 10 mEq p.o. daily. FOLLOWUP: She has appointment scheduled with her primary care physician on 08/15/2018 at 10:15 a.m. and with Cardiology on 08/30/2018 at 10:15 a.m. All discharge instructions have been reviewed with the patient and she verbalizes understanding. TIME SPENT: 33 minutes. Dictated by KAILASH Victoria for Manuel Beal MD cc: MD Manuel Chowdhury MD
== END 2018-08-07 14:27 | disposition home or self-care (01) | DRG 313 ==
LOC: P.ED 06:23 → SUATTDRO 06:24 → P.MEDSURG 06:24 → P.ICU 08-02 16:14 → P.MEDSURG 08-05 18:35
PROVIDERS: ATTEND Internal Medicine
CPT/HCPCS: 71020; 71046; 71260; 74177; 80048; 80053; 81001; 82150; 82550; 82948; 83690; 83880; 84443; 84484; 85025; 85027; 85610; 85730; 87077; 87088; 87186; 93005; 93306; 94761; 96374; 96375; 99285; A9270; C8929; C9113; J0696; J1170; J1650; J1815; J2270; J2405; Q9957; Q9967; S0164; XXXXX